=== PATIENT | male | born 1945 | race Caucasian/White ===

== ENCOUNTER 2020-03-29 18:07 | Observation (INO) ==
[2020-03-29 18:15] VITALS: BMI 24.3
--- NOTE | 2020-03-29 18:54 | DR.AMS ---
HPI <VIDYA KU - Last Filed: 03/30/20 14:16> Time Seen Time Seen by Provider: 03/29/20 18:48 PCP Primary Care Physician: DR. SUZANNE PEGUERO HPI Comment HPI Comment: PATIENT IS 74YR OLD MALE IN ER WITH AMS. TESTED FOR COVID 19 VIRUS ON WEDNESDAY AND WAS POSITIVE. HE IS NOT ON MEDICATION. HE IS WEAK, DIZZY AND CONFUSED. RUNNING FEVER. DENIES CHEST PAIN OR SINUS DRAINAGE. PATIENTS CONDITION GETTING WORSE. Complaint Cheif Complaint Doctors Comments: AMS, DIZZINESS AND COVID 19 VIRUS POSITIVE. Chief Complaint:: C/O THAT HE HAS HAD AMS, AND HE IS COVID POSITIVE HE WAS TESTED WEDNESDAY THIS WEEK , AND PT IS NOT ON ANY WEEK ,BR Self Treatment fo Chief Complaint: PT SAYS " SEJAL IS PRESIDENDENT AND HE IS IN [place] ".BR COVID-19 Coronavirus risk:travel/contact w/high risk person: No Has patient experienced Coronavirus symptoms: Yes Coronavirus symptoms experienced: Coughing and Shortness of Breath Source History Provided: Patient and Family Member Mode of Arrival Mode of Arrival: Wheelchair Timing Onset of Chief Complaint: 03/28/20 Came On: Suddenly Symptoms: Worsening Duration Duration: Constant Duration: Days Quality Quality: Confusion Severity Severity: Severe Context Recent: Fever and Cough History Of: None Associated Signs and Symptoms Associated Signs and Symptoms: Generalized Weakness, Change in Behavior and Confusion PMH <VIDYA KU - Last Filed: 03/30/20 14:16> PMH Past Medical History: No Past Surgical History: No Family History History of Family Medical Conditions: No Social History Does patient currently use any type of tobacco product: No Have you used tobacco products in the last 12 months: No Type of Tobacco Use: None Does any household member use tobacco: No Alcohol Use: None Do you use any recreational Drugs:: No Lives With: Family Lives Where: Home Travel Risk Coronavirus risk:travel/contact w/high risk person: No Has patient experienced Coronavirus symptoms: Yes Coronavirus symptoms experienced: Coughing and Shortness of Breath Infectious screening In the last 2 months have you had wt loss of >10#?: NO Have you had fever, night sweats or hemotysis?: No Have you traveled outside the country in the last 6 months?: No Isolation: Droplet ROS <VIDYA KU - Last Filed: 03/30/20 14:16> Review of Systems Constitutional: No Symptoms Reported, Fever, Weakness and Fatigue Eyes: No Symptoms Reported and See HPI ENTM: No Symptoms Reported and See HPI; negative Nose Discharge and Nose Congestion Respiratoy: No Symptoms Reported, See HPI, Non-Productive Cough and Short of Breath (ON EXERTION.); negative Wheezing Cardiovascular: No Symptoms Reported and See HPI; negative Chest Pain, Edema and Palpitations Gastrointestinal/Abdominal: No Symptoms Reported and See HPI; negative Abdominal Pain, Diarrhea and Vomiting Genitourinary: No Symptoms Reported and See HPI; negative Dysuria Neurological: Weakness and Dizziness; negative Headache Musculoskeletal: No Symptoms Reported and See HPI; negative Back Pain Integumentary: See HPI and Dryness; negative Rash Hematologic/Lymphatic: No Symptoms Reported and See HPI Endocrine: No Symptoms Reported and See HPI; negative Increased Thirst and Increased Urine Psychiatric: No Symptoms Reported and See HPI All Other Systems: Reviewed and Negative PE <VIDYA KU - Last Filed: 03/30/20 14:16> Vitals Vital Signs: Temp Pulse Pulse Resp BP BP Pulse Ox 03/29/20 22:00 73 24 164/73 96 03/29/20 18:10 102.6 F H 84 22 148/77 96 General Limitations: Altered Mental Status General Appearance: Alert Head Head Exam: Normal Inspection and Atraumatic Head Exam Physical: Other (NONE NOTED.) Eyes Eye exam: Normal Appearance and PERRL; negative Scleral Icterus and Conjunctival Injection Pupils: Regular, Round: Bilateral ENT ENT Exam: Normal Exam, Normal Oropharynx, Normal External Ear Exam and TM's Normal Bilaterally External Ear Exam: Normal External Inspection; negative Mastoid Tenderness TM/Canal Exam: Bilateral: Normal Nose Exam: Normal Nose Exam Mouth Exam: Normal Inspection; negative Lip Swelling and Tongue Swelling Throat Exam: Normal Inspection; negative Tonsillar Erythema, Tonsillomegaly and Tonsillar Exudate Neck Neck Exam: Normal Inspection and Trachea Midline; negative Tenderness and Lymphadenopathy Chest Chest Inspection: Normal Inspection and Symmetric Chest Wall Rise; negative Tenderness Respiratory Respiratory Exam: Normal Lung Sounds Bilat; negative Accessory Muscle Use, Chest Wall Tenderness and Respiratory Distress Respiratory Exam: Bilateral: Rhonchi and Lower: Rhonchi Cardiovascular Cardiovascular Exam: Regular Rate and Normal Rhythm Abdominal Exam Abdominal Exam: Normal Inspection, Normal Bowel Sounds and Soft Extremities Extremities Exam: Normal Inspection Back Back Exam: Normal Inspection Neurological Neurological Exam: Alert and Oriented X3 Psychological Psychiatric Exam: Normal Affect and Normal Mood Skin Skin Exam: Warm, Dry, Intact and Normal Color <Denia Wu - Last Filed: 03/29/20 22:21> Vitals Vital Signs: Temp Pulse Pulse Resp BP BP Pulse Ox 03/29/20 22:00 73 24 164/73 96 03/29/20 18:10 102.6 F H 84 22 148/77 96 MDM <VIDYA KU - Last Filed: 03/30/20 14:16> Differential Diagnosis Metabolic: Dehydration, Hypercalcemia, Hypernatremia, Hypoglycemia and Hyponat remia Structural: CVA and Mass Lesion Infectious: Sepsis and UTI Environmental: Hyperthermia (PNEUMONIA, [place].) COURSE <VIDYA KU - Last Filed: 03/30/20 14:16> Treatment Treatment: SEE NINO. PATIENT SIGH OUT TO DR. WU 20:00PM. Education/Counseling Education/Counseling: Patient <Denia Wu - Last Filed: 03/29/20 22:21> Treatment Treatment: [address] Ku 2200 explained dx and need for admission to pt and Consultation Call Returned: 22:00 (Dr Marx accepts admission) ROR <VIDYA KU - Last Filed: 03/30/20 14:16> Labs Reviewed Laboratory Results Reviewed?: Yes Result Diagrams: 03/30/20 06:20 03/30/20 06:20 Laboratory: WBC 2.8 X10^3/uL (3.6-10.0) L 03/29/20 19:18 RBC 3.80 X10^6/uL (4.7-6.0) L 03/29/20 19:18 Hgb 12.3 g/dL (13.5-18.0) L 03/29/20 19:18 Hct 34.8 % (42.0-54.0) L 03/29/20 19:18 MCV 91.7 fL (80.0-100.0) 03/29/20 19:18 MCH 32.3 pg (27.0-34.0) 03/29/20 19:18 MCHC 35.3 g/dL (33.0-35.0) H 03/29/20 19:18 RDW 13.8 % (11.6-16.5) 03/29/20 19:18 Plt Count 102 X10^3/uL (150.0-450.0) L 03/29/20 19:18 MPV 8.5 fL (7.4-11.0) 03/29/20 19:18 Neut % (Auto) 75.8 % (42.0-75.0) H 03/29/20 19:18 Lymph % (Auto) 13.3 % (21.0-51.0) L 03/29/20 19:18 [place] % (Auto) 10.6 % (0.0-13.0) 03/29/20 19:18 Eos % (Auto) 0.1 % (0.9-2.9) L 03/29/20 19:18 Baso % (Auto) 0.2 % (0.2-1.0) 03/29/20 19:18 Neut # (Auto) 2.2 x10^3/uL (2.2-4.8) 03/29/20 19:18 Lymph # (Auto) 0.4 X10^3/uL (1.3-2.9) L 03/29/20 19:18 [place] # (Auto) 0.3 x10^3/uL (0.3-0.8) 03/29/20 19:18 Eos # (Auto) 0.0 x10^3/uL (0.0-0.2) 03/29/20 19:18 Baso # (Auto) 0.0 X10^3/uL (0.0-0.1) 03/29/20 19:18 Absolute Nucleated RBC 0.0 /100WBC 03/29/20 19:18 Sample Site Rr 03/29/20 20:36 ABG pH 7.500 (7.35-7.45) H 03/29/20 20:36 ABG pCO2 32.0 mmHg (35.0-45.0) L 03/29/20 20:36 ABG pO2 66.0 mmHg (80.0-100.0) L 03/29/20 20:36 ABG HCO3 25.0 mmol/L (22-26) 03/29/20 20:36 ABG O2 Saturation 94.0 % (90-100) 03/29/20 20:36 ABG Base Excess 2.3 mmol/L (-2.0-2.0) H 03/29/20 20:36 Kings Test Pos 03/29/20 20:36 A-a Gradient 44.0 mmHg 03/29/20 20:36 FiO2 21.0 03/29/20 20:36 Blood Gas Comments Parviz well sw 03/29/20 20:36 Sodium 135 mmol/L (136-145) L 03/29/20 19:18 Corrected Sodium 138 mmol/L (136-145) 03/29/20 19:18 Potassium 3.6 mmol/L (3.5-5.1) 03/29/20 19:18 Chloride 99 mmol/L (98-107) 03/29/20 19:18 Carbon Dioxide 25.7 mmol/L (21-32) 03/29/20 19:18 BUN 20 mg/dL (7-18) H 03/29/20 19:18 Creatinine 1.28 mg/dL (0.70-1.30) 03/29/20 19:18 Est GFR (MDRD) Af Amer > 60 (>60) 03/29/20 19:18 Est GFR (MDRD) Non-Af 58 (>60) L 03/29/20 19:18 Glucose 242 mg/dL (65-99) H 03/29/20 19:18 Calcium 8.7 mg/dL (8.5-10.1) 03/29/20 19:18 Corrected Calcium 9.3 mg/dL (8.5-10.1) 03/29/20 19:18 Ferritin 932 ng/mL (26-388) H 03/29/20 19:18 Total Bilirubin 0.50 mg/dL (0.2-1.0) 03/29/20 19:18 AST 19 Units/L (15-37) 03/29/20 19:18 ALT 21 Units/L (12-78) 03/29/20 19:18 Alkaline Phosphatase 67 Units/L (46-116) 03/29/20 19:18 C-Reactive Protein 77.90 mg/L (0-3.0) H 03/29/20 19:18 Total Protein 6.4 g/dL (6.4-8.2) 03/29/20 19:18 Albumin 3.2 g/dL (3.4-5.0) L 03/29/20 19:18 Globulin 3.2 g/dL (2.5-4.5) 03/29/20 19:18 Albumin/Globulin Ratio 1.0 Ratio (1.1-2.1) L 03/29/20 19:18 Specimen Type Clean catch urine 03/29/20 20:02 Urine Color Yellow (YELLOW) 03/29/20 20:02 Urine Appearance Clear (CLEAR) 03/29/20 20:02 Urine pH 5.0 (5.0 - 8.0) 03/29/20 20:02 Ur Specific [place] 1.015 (1.000-1.030) 03/29/20 20:02 Urine Protein 3+ (NEGATIVE) 03/29/20 20: Urine Glucose (UA) 4+ (NEGATIVE) 03/29/20 20:02 Urine Ketones 1+ (NEGATIVE) 03/29/20 20:02 Urine Occult Blood 2+ (NEGATIVE) 03/29/20 20:02 Urine Nitrite Negative (NEGATIVE) 03/29/20 20:02 Urine Bilirubin Negative (NEGATIVE) 03/29/20 20:02 Urine Urobilinogen Normal (NORMAL) 03/29/20 20:02 Ur Leukocyte Esterase Negative (NEGATIVE) 03/29/20 20:02 Urine RBC 3-5 /HPF (0-3) A 03/29/20 20:02 Urine WBC None seen /HPF (0-5) 03/29/20 20:02 Ur Squamous Epith Cells Rare /HPF (NEGATIVE) 03/29/20 20:02 Amorphous Sediment Trace /HPF (NEGATIVE) 03/29/20 20:02 Urine Bacteria Negative /HPF (NEGATIVE) 03/29/20 20:02 Urine Mucus Few /HPF (NEGATIVE) 03/29/20 20:02 Ur Culture Indicated? No/not indicated 03/29/20 20:02 XRAY XRAY Interpreted by: Radiologist (REPORT NOTED.) EKG Rate: 69 [place]: Normal Rhythm: NSR Block: RBBB and IVCD Hypertrophy: LVH ST: Nonsp <Denia Wu - Last Filed: 03/29/20 22:21> Labs Reviewed Laboratory Results Reviewed?: Yes Laboratory: WBC 2.8 X10^3/uL (3.6-10.0) L 03/29/20 19:18 RBC 3.80 X10^6/uL (4.7-6.0) L 03/29/20 19:18 Hgb 12.3 g/dL (13.5-18.0) L 03/29/20 19:18 Hct 34.8 % (42.0-54.0) L 03/29/20 19:18 MCV 91.7 fL (80.0-100.0) 03/29/20 19:18 MCH 32.3 pg (27.0-34.0) 03/29/20 19:18 MCHC 35.3 g/dL (33.0-35.0) H 03/29/20 19:18 RDW 13.8 % (11.6-16.5) 03/29/20 19:18 Plt Count 102 X10^3/uL (150.0-450.0) L 03/29/20 19:18 MPV 8.5 fL (7.4-11.0) 03/29/20 19:18 Neut % (Auto) 75.8 % (42.0-75.0) H 03/29/20 19:18 Lymph % (Auto) 13.3 % (21.0-51.0) L 03/29/20 19:18 [place] % (Auto) 10.6 % (0.0-13.0) 03/29/20 19:18 Eos % (Auto) 0.1 % (0.9-2.9) L 03/29/20 19:18 Baso % (Auto) 0.2 % (0.2-1.0) 03/29/20 19:18 Neut # (Auto) 2.2 x10^3/uL (2.2-4.8) 03/29/20 19:18 Lymph # (Auto) 0.4 X10^3/uL (1.3-2.9) L 03/29/20 19:18 [place] # (Auto) 0.3 x10^3/uL (0.3-0.8) 03/29/20 19:18 Eos # (Auto) 0.0 x10^3/uL (0.0-0.2) 03/29/20 19:18 Baso # (Auto) 0.0 X10^3/uL (0.0-0.1) 03/29/20 19:18 Absolute Nucleated RBC 0.0 /100WBC 03/29/20 19:18 Sample Site Rr 03/29/20 20:36 ABG pH 7.500 (7.35-7.45) H 03/29/20 20:36 ABG pCO2 32.0 mmHg (35.0-45.0) L 03/29/20 20:36 ABG pO2 66.0 mmHg (80.0-100.0) L 03/29/20 20:36 ABG HCO3 25.0 mmol/L (22-26) 03/29/20 20:36 ABG O2 Saturation 94.0 % (90-100) 03/29/20 20:36 ABG Base Excess 2.3 mmol/L (-2.0-2.0) H 03/29/20 20:36 Kings Test Pos 03/29/20 20:36 A-a Gradient 44.0 mmHg 03/29/20 20:36 FiO2 21.0 03/29/20 20:36 Blood Gas Comments Parviz well sw 03/29/20 20:36 Sodium 135 mmol/L (136-145) L 03/29/20 19:18 Corrected Sodium 138 mmol/L (136-145) 03/29/20 19:18 Potassium 3.6 mmol/L (3.5-5.1) 03/29/20 19:18 Chloride 99 mmol/L (98-107) 03/29/20 19:18 Carbon Dioxide 25.7 mmol/L (21-32) 03/29/20 19:18 BUN 20 mg/dL (7-18) H 03/29/20 19:18 Creatinine 1.28 mg/dL (0.70-1.30) 03/29/20 19:18 Est GFR (MDRD) Af Amer > 60 (>60) 03/29/20 19:18 Est GFR (MDRD) Non-Af 58 (>60) L 03/29/20 19:18 Glucose 242 mg/dL (65-99) H 03/29/20 19:18 Calcium 8.7 mg/dL (8.5-10.1) 03/29/20 19:18 Corrected Calcium 9.3 mg/dL (8.5-10.1) 03/29/20 19:18 Ferritin 932 ng/mL (26-388) H 03/29/20 19:18 Total Bilirubin 0.50 mg/dL (0.2-1.0) 03/29/20 19:18 AST 19 Units/L (15-37) 03/29/20 19:18 ALT 21 Units/L (12-78) 03/29/20 19:18 Alkaline Phosphatase 67 Units/L (46-116) 03/29/20 19:18 C-Reactive Protein 77.90 mg/L (0-3.0) H 03/29/20 19:18 Total Protein 6.4 g/dL (6.4-8.2) 03/29/20 19:18 Albumin 3.2 g/dL (3.4-5.0) L 03/29/20 19:18 Globulin 3.2 g/dL (2.5-4.5) 03/29/20 19:18 Albumin/Globulin Ratio 1.0 Ratio (1.1-2.1) L 03/29/20 19:18 Specimen Type Clean catch urine 03/29/20 20:02 Urine Color Yellow (YELLOW) 03/29/20 20:02 Urine Appearance Clear (CLEAR) 03/29/20 20:02 Urine pH 5.0 (5.0 - 8.0) 03/29/20 20:02 Ur Specific [place] 1.015 (1.000-1.030) 03/29/20 20:02 Urine Protein 3+ (NEGATIVE) 03/29/20 20:02 Urine Glucose (UA) 4+ (NEGATIVE) 03/29/20 20:02 Urine Ketones 1+ (NEGATIVE) 03/29/20 20:02 Urine Occult Blood 2+ (NEGATIVE) 03/29/20 20: Urine Nitrite Negative (NEGATIVE) 03/29/20 20:02 Urine Bilirubin Negative (NEGATIVE) 03/29/20 20:02 Urine Urobilinogen Normal (NORMAL) 03/29/20 20:02 Ur Leukocyte Esterase Negative (NEGATIVE) 03/29/20 20:02 Urine RBC 3-5 /HPF (0-3) A 03/29/20 20:02 Urine WBC None seen /HPF (0-5) 03/29/20 20:02 Ur Squamous Epith Cells Rare /HPF (NEGATIVE) 03/29/20 20:02 Amorphous Sediment Trace /HPF (NEGATIVE) 03/29/20 20:02 Urine Bacteria Negative /HPF (NEGATIVE) 03/29/20 20:02 Urine Mucus Few /HPF (NEGATIVE) 03/29/20 20:02 Ur Culture Indicated? No/not indicated 03/29/20 20:02 XRAY XRAY Interpreted by: Radiologist X-ray Results: CXR: Bilateral peripheral airspace opacities; left greater than right. Findings are consistent with the given history of a COVID-[address] Head: no acute abnormality Opioid <VIDYA KU - Last Filed: 03/30/20 14:16> Opioid Risk Tool Age (Musa box if 16-45): No History of Preadolescent Sexual Abuse: No Total: 0 Total Score Risk Category: Low Risk Copyright: Jenaro DUNLAP predicting aberrant behaviors <Denia Wu - Last Filed: 03/29/20 22:21> Opioid Risk Tool Total: 0 Total Score Risk Category: Low Risk <VIDYA KU - Last Filed: 03/30/20 14:16> Diagnosis Discharge Problem: Pneumonia due to 2019 novel coronavirus, Acute confusion Sepsis Qualifiers: Sepsis type: sepsis due to unspecified organism Sepsis acute organ dysfunction status: with acute organ dysfunction Severe sepsis acute organ dysfunction type: encephalopathy Severe sepsis shock status: without septic shock Qualified Code(s): A41.9 - Sepsis, unspecified organism Leukopenia Qualifiers: Leukopenia type: lymphocytopenia Qualified Code(s): D72.810 - Lymphocytopenia Instructions Instructions: Confusion Viral Respiratory Infection, Pfdb-It-Xykw Hand Washing, Qncm-yq-Snrr Sepsis, Adult Droplet Precautions, Xuqf-qf-Ulph Contact Precautions, Suak-na-Bddz Community-Acquired Pneumonia, Adult, Ulrx-ck-Imgv Forms: Precautions for COVID19 Patient Portal Social Distancing
[2020-03-29 19:30] LABS: BASOPHILS % (AUTO) 0.2 % (0.2-1.0); EOSINOPHILS % (AUTO) 0.1 % (0.9-2.9); HEMATOCRIT 34.8 % (42.0-54.0); HEMOGLOBIN 12.3 g/dL (13.5-18.0); LYMPHOCYTES # (AUTO) 0.4 X10^3/uL (1.3-2.9); LYMPHOCYTES % (AUTO) 13.3 % (21.0-51.0); MEAN CORPUSCULAR HEMOGLOBIN 32.3 pg (27.0-34.0); MEAN CORPUSCULAR HGB CONC 35.3 g/dL (33.0-35.0); MEAN CORPUSCULAR VOLUME 91.7 fL (80.0-100.0); MEAN PLATELET VOLUME 8.5 fL (7.4-11.0); MONOCYTES # (AUTO) 0.3 x10^3/uL (0.3-0.8); MONOCYTES % (AUTO) 10.6 % (0.0-13.0); NEUTROPHILS # (AUTO) 2.2 x10^3/uL (2.2-4.8); NEUTROPHILS % (AUTO) 75.8 % (42.0-75.0); PLATELET COUNT 102 X10^3/uL (150.0-450.0); RED CELL DISTRIBUTION WIDTH 13.8 % (11.6-16.5); WHITE BLOOD COUNT 2.8 X10^3/uL (3.6-10.0)
--- NOTE | 2020-03-29 19:31 | CT ---
HISTORYWIFE C/O THAT HE HAS HAD AMS, AND HE IS COVID POSITIVE HE WAS TESTED WEDNESDAY THIS WEEKSTUDYBRAIN W/O CONCOMPARISONNoneTECHNIQUEAxial non-contrast images of the head with sagittal and coronal reformats.Radiation dose: 1256.30 mGy-cmFINDINGSNo abnormal areas of acute attenuation in the brain parenchyma.Wallace-white differentiation remains intact.No intra-cranial, extra-axial, fluid collection.No hemorrhage.Periventricular chronic microvascular disease.No mass, mass effect or midline shift.Age related brain parenchymal global atrophy.No ventriculomegaly.No acute fracture.Sinuses are well aerated.Mastoid air cells are well aerated.Globes and intra-orbital contents are unremarkable.IMPRESSIONNo acute intracranial abnormality.Electronically signed by: Kevin Farias (Mar 29, 2020 19:29:51)
[2020-03-29 19:42] LABS: ALANINE AMINOTRANSFERASE 21 Units/L (12-78); ALBUMIN 3.2 g/dL (3.4-5.0); ALKALINE PHOSPHATASE 67 Units/L (46-116); ASPARTATE AMINO TRANSFERASE 19 Units/L (15-37); BLOOD UREA NITROGEN 20 mg/dL (7-18); CALCIUM 8.7 mg/dL (8.5-10.1); CARBON DIOXIDE 25.7 mmol/L (21-32); CHLORIDE 99 mmol/L (98-107); COR CA(FOR HYPOALB) 9.3 mg/dL (8.5-10.1); COR NA(FOR HYPERGLY) 138 mmol/L (136-145); CREATININE 1.28 mg/dL (0.70-1.30); SODIUM 135 mmol/L (136-145); TOTAL PROTEIN 6.4 g/dL (6.4-8.2); eGFR NON BLACK RACES 58 (>60)
--- NOTE | 2020-03-29 20:09 | RAD ---
HISTORYWIFE C/O THAT HE HAS HAD AMS, AND HE IS COVID POSITIVE HE WAS TESTED WEDNESDAY THIS WEEKSTUDYCHEST, 1 VIEWCOMPARISONNone availableTECHNIQUEPortable AP chest radiograph 1 imageFINDINGSNo cardiomegaly.Bilateral peripheral airspace opacities; left greater than right.Mild diffuse increased interstitial markings.No pleural effusion.No pneumothorax.No acute osseous abnormality.IMPRESSIONBilateral peripheral airspace opacities; left greater than right. Findings are consistent with the given history of a COVID-19 respiratory infection.Electronically signed by: Kevin Farias (Mar 29, 2020 20:07:09)
[2020-03-29 20:28] LABS: BILIRUBIN,URINE NEGATIVE (NEGATIVE); BLOOD/HEMOGLOBIN,URINE 2+ (NEGATIVE); GLUCOSE, URINE 4+ (NEGATIVE); KETONES,URINE 1+ (NEGATIVE); LEUKOCYTE ESTERASE ,URINE NEGATIVE (NEGATIVE); NITRITES,URINE NEGATIVE (NEGATIVE); PROTEIN,URINE 3+ (NEGATIVE); UROBILINOGEN,URINE NORMAL (NORMAL)
[2020-03-29] MEDS ORDERED: ZITHROMAX INJ 500 MG VIAL 500 MG in NS 250 ML IV 250 ML IV SCH (20:37)
[2020-03-29] MEDS ORDERED: SOLU-Medrol 125 MG VIAL IVP ONE (20:37)
[2020-03-29 20:46] LABS: APPEARANCE,URINE CLEAR (CLEAR); COLOR,URINE YELLOW (YELLOW)
[2020-03-29 20:47] LABS: AMORPHOUS SEDIMENT,UR TRACE /HPF (NEGATIVE); BACTERIA,URINE NEGATIVE /HPF (NEGATIVE); MUCUS,URINE FEW /HPF (NEGATIVE); SQUAMOUS EPITHELIAL CELL,UR RARE /HPF (NEGATIVE)
[2020-03-29] MEDS ORDERED: SOLU-Medrol 125 MG VIAL ONE (21:19)
[2020-03-29] MEDS ORDERED: ZITHROMAX INJ 500 MG VIAL IV ONE (21:19)
[2020-03-29] MEDS ORDERED: NS 250 ML IV 250 ML IV ONE (21:19)
[2020-03-29 21:43] LABS: ABG ALLEN TEST POS; ABG BASE EXCESS 2.3 mmol/L (-2.0-2.0)
[2020-03-29] MEDS ORDERED: REMDESIVIR 200 MG in NS 250 ML IV 250 ML IV ONE (22:08)
[2020-03-29] MEDS ORDERED: NS 1000 ML 1,000 ML ONE (23:02)
[2020-03-29] MEDS ORDERED: NS 100 ML IV 100 ML IV ONE (23:03)
[2020-03-29] MEDS ORDERED: ASCORBIC ACID INJ MULTI-DOSE VIAL IV ONE (23:05)
[2020-03-29] MEDS: NS 1000 ML 1,000 ML IV SCH (23:10)
[2020-03-30 06:48] LABS: BASOPHILS % (AUTO) 0.1 % (0.2-1.0); HEMATOCRIT 32.7 % (42.0-54.0); HEMOGLOBIN 11.6 g/dL (13.5-18.0); LYMPHOCYTES # (AUTO) 0.3 X10^3/uL (1.3-2.9); LYMPHOCYTES % (AUTO) 13.2 % (21.0-51.0); MEAN CORPUSCULAR HEMOGLOBIN 32.9 pg (27.0-34.0); MEAN CORPUSCULAR HGB CONC 35.6 g/dL (33.0-35.0); MEAN CORPUSCULAR VOLUME 92.5 fL (80.0-100.0); MEAN PLATELET VOLUME 9.1 fL (7.4-11.0); MONOCYTES # (AUTO) 0.1 x10^3/uL (0.3-0.8); MONOCYTES % (AUTO) 5.4 % (0.0-13.0); NEUTROPHILS # (AUTO) 1.6 x10^3/uL (2.2-4.8); NEUTROPHILS % (AUTO) 81.3 % (42.0-75.0); PLATELET COUNT 96 X10^3/uL (150.0-450.0); RED BLOOD COUNT 3.54 X10^6/uL (4.7-6.0); RED CELL DISTRIBUTION WIDTH 13.6 % (11.6-16.5)
[2020-03-30 07:21] LABS: ALANINE AMINOTRANSFERASE 18 Units/L (12-78); ALBUMIN 2.8 g/dL (3.4-5.0); ALKALINE PHOSPHATASE 55 Units/L (46-116); ASPARTATE AMINO TRANSFERASE 16 Units/L (15-37); BLOOD UREA NITROGEN 23 mg/dL (7-18); CALCIUM 8.6 mg/dL (8.5-10.1); CARBON DIOXIDE 22.4 mmol/L (21-32); CHLORIDE 101 mmol/L (98-107); COR CA(FOR HYPOALB) 9.6 mg/dL (8.5-10.1); COR NA(FOR HYPERGLY) 142 mmol/L (136-145); CREATININE 1.09 mg/dL (0.70-1.30); SODIUM 136 mmol/L (136-145); eGFR NON BLACK RACES > 60 (>60)
[2020-03-30] MEDS: VIBRAMYCIN PO SCH ×2 (07:31→08:47)
[2020-03-30] MEDS: DECADRON TAB PO SCH ×2 (07:31→17:29)
[2020-03-30] MEDS: ASCORBIC ACID INJ MULTI-DOSE VIAL 1,500 MG in NS 100 ML IV 100 ML IV SCH ×4 (07:31→20:19)
[2020-03-30 07:47] LABS: PLATELET MORPHOLOGY COMMENT NORMAL (NORMAL)
[2020-03-30] MEDS ORDERED: DECADRON TAB ONE (08:21)
[2020-03-30] MEDS ORDERED: VIBRAMYCIN PO ONE (08:21)
[2020-03-30] MEDS ORDERED: THIAMINE HCL INJ ONE (08:21)
[2020-03-30] MEDS ORDERED: LOVENOX INJ 30 MG SYR SC ONE ×2 (08:22→19:14)
[2020-03-30] MEDS ORDERED: ZINC SULFATE ONE ×2 (08:22→19:14)
[2020-03-30] MEDS ORDERED: NS 100 ML IV 100 ML IV ONE ×3 (08:22→19:15)
[2020-03-30] MEDS ORDERED: PEPCID TAB 40 MG ONE (08:22)
[2020-03-30] MEDS ORDERED: ASCORBIC ACID INJ MULTI-DOSE VIAL IV ONE ×3 (08:24→19:16)
[2020-03-30] MEDS: LOVENOX INJ 30 MG SYR SC SCH ×2 (08:45→20:18)
[2020-03-30] MEDS: PEPCID TAB 40 MG PO SCH (08:46)
[2020-03-30] MEDS: ZINC SULFATE PO SCH ×2 (08:46→20:19)
[2020-03-30] MEDS ORDERED: THIAMINE HCL INJ IVP SCH (09:00)
[2020-03-30] MEDS ORDERED: ZOSYN VIAL 3.375 GRAMS IV ONE ×2 (10:41→14:35)
[2020-03-30] MEDS ORDERED: NS 100 ML IV + SPIKE MINIBAG* 100 ML IV ONE ×2 (10:42→14:36)
[2020-03-30] MEDS: ZOSYN VIAL 3.375 GRAMS 3.375 G in NS 100 ML IV + SPIKE MINIBAG* 100 ML IV SCH ×3 (11:04→22:00)
--- NOTE | 2020-03-30 11:19 | DR.H&P ---
H&P History & Physical for Day of: H&P Date: 03/30/20 Chief Complaint Chief Complaint: weakness, AMS Allergies Allergies Allergy/AdvReac Type Severity Reaction Status Date / Time No Known Drug Allergies Allergy Verified 03/29/20 18:09 History of Present Illness History of Present Illness: Mr. Cardozo is a 74y/o male with a PMH of DM presented with confusion, SOB and generalized weakness. Patient tested positive for COVID -19 on Tu03/26/20 after his fianc also tested positive. Patient is not sure if he was having any symptoms. He was brought to the ED yesterday due to weakness and confusion. ED work-up - CXR: bilateral airspace pulmonary opacities - CT-head: negative for acute process - AB.5/32/66/25 sats 94% on RA. - Labs: CRP 77 WBC 2 Hgb 11.6 Plt 96 He received a dose of solumedrol, azithromax and Remdesivir. Patient is currently on room air with sats > 92%. He is alert and oriented to himself and place. He was not able to tell me the month or the year. He is a fair historian. Plan: continue decadron, switch Doxycycline to Zosyn. Continue Remdesivir and lovenox.Monitor respiratory status closely. Add bronchodilators. Continue vitamin support. Add SSI for hyperglycemia. Monitor AM labs, imaging. Past Medical History Past Medical History: Diabetes Past Surgical History Surgical History: Unknown Social History Does patient currently use any type of tobacco product: No Have you used tobacco products in the last 12 months: No Type of Tobacco Use: None Does any household member use tobacco: No Alcohol Use: None Medications Home Medications: No Known Drug Allergies Allergy (Verified 03/29/20 18:09) CONTINUE taking the following medications glimepiride 4 mg PO DAILYWB 03/30/20 [History] Labs Result Diagrams: 03/30/20 06:20 03/30/20 06:20 Labs: Laboratory WBC 2.0 X10^3/uL (3.6-10.0) L 03/30/20 06:20 RBC 3.54 X10^6/uL (4.7-6.0) L 03/30/20 06:20 Hgb 11.6 g/dL (13.5-18.0) L 03/30/20 06:20 Hct 32.7 % (42.0-54.0) L 03/30/20 06:20 MCV 92.5 fL (80.0-100.0) 03/30/20 06:20 MCH 32.9 pg (27.0-34.0) 03/30/20 06:20 MCHC 35.6 g/dL (33.0-35.0) H 03/30/20 06:20 RDW 13.6 % (11.6-16.5) 03/30/20 06:20 Plt Count 96 X10^3/uL (150.0-450.0) L 03/30/20 06:20 Plt Count Comment Decreased (ADEQUATE) 03/30/20 06:20 MPV 9.1 fL (7.4-11.0) 03/30/20 06:20 Neut % (Auto) 81.3 % (42.0-75.0) H 03/30/20 06:20 Lymph % (Auto) 13.2 % (21.0-51.0) L 03/30/20 06:20 [place] % (Auto) 5.4 % (0.0-13.0) 03/30/20 06:20 Eos % (Auto) 0.0 % (0.9-2.9) L 03/30/20 06:20 Baso % (Auto) 0.1 % (0.2-1.0) L 03/30/20 06:20 Neut # (Auto) 1.6 x10^3/uL (2.2-4.8) L 03/30/20 06:20 Lymph # (Auto) 0.3 X10^3/uL (1.3-2.9) L 03/30/20 06:20 [place] # (Auto) 0.1 x10^3/uL (0.3-0.8) L 03/30/20 06:20 Eos # (Auto) 0.0 x10^3/uL (0.0-0.2) 03/30/20 06:20 Baso # (Auto) 0.0 X10^3/uL (0.0-0.1) 03/30/20 06:20 Absolute Nucleated RBC 0.3 /100WBC 03/30/20 06:20 Total Counted 100 03/30/20 06:20 Neutrophils % (Manual) 91 % (39-76) H 03/30/20 06:20 Lymphocytes % (Manual) 4 % (13-43) L 03/30/20 06:20 Monocytes % (Manual) 5 % (4-9) 03/30/20 06:20 Plt Morphology Comment Normal (NORMAL) 03/30/20 06:20 RBC Morphology Normal (NORMAL) 03/30/20 06:20 Sample Site Rr 03/29/20 20:36 ABG pH 7.500 (7.35-7.45) H 03/29/20 20:36 ABG pCO2 32.0 mmHg (35.0-45.0) L 03/29/20 20:36 ABG pO2 66.0 mmHg (80.0-100.0) L 03/29/20 20:36 ABG HCO3 25.0 mmol/L (22-26) 03/29/20 20:36 ABG O2 Saturation 94.0 % (90-100) 03/29/20 20:36 ABG Base Excess 2.3 mmol/L (-2.0-2.0) H 03/29/20 20:36 Kings Test Pos 03/29/20 20:36 A-a Gradient 44.0 mmHg 03/29/20 20:36 FiO2 21.0 03/29/20 20:[address] [facility] well 03/29/20 20:36 Sodium 136 mmol/L (136-145) 03/30/20 06:20 Corrected Sodium 142 mmol/L (136-145) 03/30/20 06:20 Potassium 3.9 mmol/L (3.5-5.1) 03/30/20 06:20 Chloride 101 mmol/L (98-107) 03/30/20 06:20 Carbon Dioxide 22.4 mmol/L (21-32) 03/30/20 06:20 BUN 23 mg/dL (7-18) H 03/30/20 06:20 Creatinine 1.09 mg/dL (0.70-1.30) 03/30/20 06:20 Est GFR (MDRD) Af Amer > 60 (>60) 03/30/20 06:20 Est GFR (MDRD) Non-Af > 60 (>60) 03/30/20 06:20 Glucose 337 mg/dL (65-99) H 03/30/20 06:20 POC Glucose (mg/dL) 374 mg/dL (65-99) H 03/30/20 11:08 Calcium 8.6 mg/dL (8.5-10.1) 03/30/20 06:20 Corrected Calcium 9.6 mg/dL (8.5-10.1) 03/30/20 06:20 Ferritin 932 ng/mL (26-388) H 03/29/20 19:18 Total Bilirubin 0.60 mg/dL (0.2-1.0) 03/30/20 06:20 AST 16 Units/L (15-37) 03/30/20 06:20 ALT 18 Units/L (12-78) 03/30/20 06:20 Alkaline Phosphatase 55 Units/L (46-116) 03/30/20 06:20 C-Reactive Protein 77.90 mg/L (0-3.0) H 03/29/20 19:18 Total Protein 6.0 g/dL (6.4-8.2) L 03/30/20 06:20 Albumin 2.8 g/dL (3.4-5.0) L 03/30/20 06:20 Globulin 3.2 g/dL (2.5-4.5) 03/30/20 06:20 Albumin/Globulin Ratio 0.9 Ratio (1.1-2.1) L 03/30/20 06:20 Specimen Type Clean catch urine 03/29/20 20:02 Urine Color Yellow (YELLOW) 03/29/20 20:02 Urine Appearance Clear (CLEAR) 03/29/20 20:02 Urine pH 5.0 (5.0 - 8.0) 03/29/20 20:02 Ur Specific [place] 1.015 (1.000-1.030) 03/29/20 20:02 Urine Protein 3+ (NEGATIVE) 03/29/20 20:02 Urine Glucose (UA) 4+ (NEGATIVE) 03/29/20 20:02 Urine Ketones 1+ (NEGATIVE) 03/29/20 20:02 Urine Occult Blood 2+ (NEGATIVE) 03/29/20 20:02 Urine Nitrite Negative (NEGATIVE) 03/29/20 20:02 Urine Bilirubin Negative (NEGATIVE) 03/29/20 20:02 Urine Urobilinogen Normal (NORMAL) 03/29/20 20:02 Ur Leukocyte Esterase Negative (NEGATIVE) 03/29/20 20:02 Urine RBC 3-5 /HPF (0-3) A 03/29/20 20:02 Urine WBC None seen /HPF (0-5) 03/29/20 20:02 Ur Squamous Epith Cells Rare /HPF (NEGATIVE) 03/29/20 20:02 Amorphous Sediment Trace /HPF (NEGATIVE) 03/29/20 20:02 Urine Bacteria Negative /HPF (NEGATIVE) 03/29/20 20:02 Urine Mucus Few /HPF (NEGATIVE) 03/29/20 20:02 Ur Culture Indicated? No/not indicated 03/29/20 20:02 SARS CoV-2 RNA Rapid MARIBETH Positive (NEGATIVE) A 03/29/20 22:54 Review of Systems Constitutional: Weakness and Malaise Eyes: No Symptoms Reported ENT: No Symptoms Reported Respiratory: Shortness of Breath Cardiovascular: No Symptoms Reported Gastrointestinal: No Symptoms Reported Genitourinary: No Symptoms Reported Musculoskeletal: No Symptoms Reported Skin: No Symptoms Reported Neurological: Confusion Physical Exam Vital Signs: Temperature 97.9 F Pulse Rate [Apical] 54 Pulse Rate 84 Respiratory Rate 19 Blood Pressure [Right Arm] 187/80 Blood Pressure 148/77 O2 Sat by Pulse Oximetry 97 Oriented: Normal, Person and Place Eyes: Normal Ear: Normal Nose: Normal Throat: Normal Respiratory: Diminished Throughout Cardiovascular: Normal Auscultation: Bowel Sounds: Normal Palpation: Normal Tenderness: Normal Skin: Normal Musculoskeletal: Normal Psychiatric: Normal Mood Description: Calm Affect: Normal Speech Pattern: Clear and Appropriate Assessment/Plan (1) Pneumonia due to 2019 novel coronavirus: Status: Acute (2) Acute confusion: Status: Acute (3) Leukopenia: Qualifiers: Leukopenia type: lymphocytopenia Qualified Code(s): D72.810 - Lymphocytopenia Status: Acute (4) Diabetes: Status: Acute Review H&P Reviewed: Yes Patient was examined?: Yes
[2020-03-30] MEDS ORDERED: HumuLIN R ONE ×3 (12:23→20:37)
[2020-03-30] MEDS: HumuLIN R SC PRN ×3 (12:56→20:58)
[2020-03-30] MEDS: DUONEB 0.5 MG/3 MG (3 mL) NEB SCH ×2 (13:45→21:10)
[2020-03-30] MEDS ORDERED: APRESOLINE INJ 20 MG VIAL ONE (18:17)
[2020-03-30] MEDS: APRESOLINE INJ 20 MG VIAL IVP PRN (18:22)
[2020-03-30] MEDS ORDERED: REMDESIVIR IV ONE (19:14)
[2020-03-30] MEDS ORDERED: NS 250 ML IV 250 ML IV ONE ×2 (19:15→20:39)
[2020-03-30] MEDS ORDERED: REMDESIVIR 100 MG in NS 250 ML IV 250 ML IV SCH (21:00)
[2020-03-30] MEDS: NS 1000 ML 1,000 ML IV SCH (23:07)
[2020-03-31] MEDS: ASCORBIC ACID INJ MULTI-DOSE VIAL 1,500 MG in NS 100 ML IV 100 ML IV SCH ×2 (03:00→09:12)
[2020-03-31] MEDS ORDERED: NS 100 ML IV 100 ML IV ONE ×2 (03:16→09:04)
[2020-03-31] MEDS ORDERED: ASCORBIC ACID INJ MULTI-DOSE VIAL IV ONE ×2 (03:17→09:05)
[2020-03-31] MEDS: ZOSYN VIAL 3.375 GRAMS 3.375 G in NS 100 ML IV + SPIKE MINIBAG* 100 ML IV SCH (05:13)
[2020-03-31] MEDS: DUONEB 0.5 MG/3 MG (3 mL) NEB SCH (05:18)
[2020-03-31] MEDS ORDERED: HumuLIN R ONE (06:13)
[2020-03-31 06:18] LABS: BASOPHILS % (AUTO) 0 % (0.2-1.0); HEMATOCRIT 32.7 % (42.0-54.0); HEMOGLOBIN 11.5 g/dL (13.5-18.0); LYMPHOCYTES # (AUTO) 0.2 X10^3/uL (1.3-2.9); LYMPHOCYTES % (AUTO) 8.1 % (21.0-51.0); MEAN CORPUSCULAR HEMOGLOBIN 32.7 pg (27.0-34.0); MEAN CORPUSCULAR HGB CONC 35.2 g/dL (33.0-35.0); MEAN PLATELET VOLUME 9.1 fL (7.4-11.0); MONOCYTES # (AUTO) 0.2 x10^3/uL (0.3-0.8); MONOCYTES % (AUTO) 9.8 % (0.0-13.0); NEUTROPHILS # (AUTO) 1.8 x10^3/uL (2.2-4.8); NEUTROPHILS % (AUTO) 82.1 % (42.0-75.0); PLATELET COUNT 104 X10^3/uL (150.0-450.0); RED BLOOD COUNT 3.52 X10^6/uL (4.7-6.0); RED CELL DISTRIBUTION WIDTH 13.6 % (11.6-16.5); WHITE BLOOD COUNT 2.2 X10^3/uL (3.6-10.0)
[2020-03-31 06:26] LABS: BLOOD UREA NITROGEN 29 mg/dL (7-18); CARBON DIOXIDE 25.6 mmol/L (21-32); CHLORIDE 107 mmol/L (98-107); COR NA(FOR HYPERGLY) 149 mmol/L (136-145); CREATININE 1.27 mg/dL (0.70-1.30); SODIUM 143 mmol/L (136-145); eGFR NON BLACK RACES 59 (>60)
[2020-03-31] MEDS: HumuLIN R SC PRN (06:26)
[2020-03-31 07:26] LABS: BAND NEUTROPHILS % 3 % (0-10); PLATELET MORPHOLOGY COMMENT NORMAL (NORMAL)
[2020-03-31] MEDS ORDERED: APRESOLINE INJ 20 MG VIAL ONE (08:29)
[2020-03-31] MEDS: APRESOLINE INJ 20 MG VIAL IVP PRN ×2 (08:34→08:35)
[2020-03-31] MEDS ORDERED: VITAMIN D3 125 mcg (5,000 UNITS) PO SCH (09:00)
[2020-03-31] MEDS ORDERED: THIAMINE HCL INJ IVP SCH (09:00)
[2020-03-31] MEDS ORDERED: VITAMIN A PO SCH (09:00)
[2020-03-31] MEDS ORDERED: PEPCID TAB 40 MG ONE (09:04)
[2020-03-31] MEDS ORDERED: THIAMINE HCL INJ ONE (09:04)
[2020-03-31] MEDS ORDERED: ZINC SULFATE ONE (09:04)
[2020-03-31] MEDS ORDERED: DECADRON TAB ONE (09:04)
[2020-03-31] MEDS ORDERED: LOVENOX INJ 30 MG SYR SC ONE (09:04)
[2020-03-31] MEDS: DECADRON TAB PO SCH (09:12)
[2020-03-31] MEDS: PEPCID TAB 40 MG PO SCH (09:18)
[2020-03-31] MEDS: ZINC SULFATE PO SCH (09:19)
[2020-03-31] MEDS: LOVENOX INJ 30 MG SYR SC SCH (09:19)
[2020-03-31 10:15] VITALS: BP 158/71
--- NOTE | 2020-03-31 10:46 | RAD ---
Chest AP portableIndication: COVID-19 infection with hypoxiaComparison March 29, 2020FINDINGSBilateral patchy pulmonary opacities are similar to the prior and peripheral. Monitor leads obscure minimal detail. There is no pneumothorax or effusion. Heart size is prominentIMPRESSIONUnchanged patchy bilateral pulmonary opacities suggesting viral pneumonitisElectronically signed by: JERRY KAUR (Mar 31, 2020 10:44:06)
--- NOTE | 2020-03-31 10:55 | W.DIS.FURT ---
Summary of Discharge Discharge Summary of Date Date of Exam: 03/31/20 Admission Date Date of Admission: 03/30/20 Admission Diagnosis Patient Problems (Updated 03/30/20 @ 11:29 by Shantell Martinez) Sepsis (Acute) A41.9 Pneumonia due to 2019 novel coronavirus (Acute) U07.1, J12.82 Acute confusion (Acute) R41.0 Leukopenia (Acute) D72.819 Hospital Course: Mr. Cardozo is a 74y/o male with a PMH of DM presented with confusion, SOB and generalized weakness. Patient tested positive for COVID -19 on 03/26/20 after his fianc also tested positive. Patient is not sure if he was having any symptoms. He was brought to the ED yesterday due to weakness and confusion. In the ER, CXR showed bilateral airspace disease. CT-head was negative for any acute process. Patient did require O2 2L on admission. ABG did show slight hypoxia, sats above 90% on RA. He recieved a dose of solumedrol, azithromycin and Remdesivir. He was switched to decadron and Zosyn. He was also started on bronchodilators, vitamin support and Lovenox of DVT ppx. He remained on room air. Denied shortness of breath or cough. Denies fever or chills. Patient was stable to go home. He and his fiance take care of each other. He was discharged on oral antibiotics. His BP was elevated while he was here, he states he used to be on BP medicine but not now. He was started on Norvasc 5 mg and advised to follow up with PCP. He was advised to return to ED if he has worsening shortness of breath. Patient will follow up with PCP as scheduled. Vital Signs: Vital Signs (72 hours) 03/29/20 18:10 03/29/20 22:00 03/29/20 22:56 Temperature 102.6 F H 98.2 F Pulse Rate 84 Pulse Rate [Apical] 73 71 Respiratory Rate 22 24 27 H Blood Pressure 148/77 Blood Pressure [Right Arm] 164/73 164/73 O2 Sat by Pulse Oximetry 96 96 92 L 03/30/20 00:00 03/30/20 04:00 03/30/20 08:00 Temperature 98.2 F 97.9 F Pulse Rate Pulse Rate [Apical] 70 55 L 54 L Respiratory Rate 26 H 22 19 Blood Pressure Blood Pressure [Right Arm] 156/69 187/80 O2 Sat by Pulse Oximetry 93 L 99 97 03/30/20 12:00 03/30/20 13:45 03/30/20 16:00 Temperature 98.3 F Pulse Rate 81 Pulse Rate [Apical] 91 H 68 Respiratory Rate 18 22 Blood Pressure Blood Pressure [Right Arm] 157/71 133/96 O2 Sat by Pulse Oximetry 92 L 94 L 94 L 03/30/20 20:00 03/30/20 21:10 03/31/20 00:00 Temperature 97.8 F 98.7 F Pulse Rate 69 Pulse Rate [Apical] 68 64 Respiratory Rate 18 20 Blood Pressure Blood Pressure [Right Arm] 169/74 125/67 O2 Sat by Pulse Oximetry 98 95 95 03/31/20 04:00 03/31/20 08:00 03/31/20 09:00 Temperature 98.3 F 98.4 F Pulse Rate Pulse Rate [Apical] 55 L 78 Respiratory Rate 20 20 Blood Pressure Blood Pressure [Right Arm] 171/74 180/75 158/71 O2 Sat by Pulse Oximetry 95 97 Labs: Laboratory Last Values WBC 2.2 X10^3/uL (3.6-10.0) L 03/31/20 05:46 RBC 3.52 X10^6/uL (4.7-6.0) L 03/31/20 05:46 Hgb 11.5 g/dL (13.5-18.0) L 03/31/20 05:46 Hct 32.7 % (42.0-54.0) L 03/31/20 05:46 MCV 93.0 fL (80.0-100.0) 03/31/20 05:46 MCH 32.7 pg (27.0-34.0) 03/31/20 05:46 MCHC 35.2 g/dL (33.0-35.0) H 03/31/20 05:46 RDW 13.6 % (11.6-16.5) 03/31/20 05:46 Plt Count 104 X10^3/uL (150.0-450.0) L 03/31/20 05:46 Plt Count Comment Decreased (ADEQUATE) 03/31/20 05:46 MPV 9.1 fL (7.4-11.0) 03/31/20 05:46 Neut % (Auto) 82.1 % (42.0-75.0) H 03/31/20 05:46 Lymph % (Auto) 8.1 % (21.0-51.0) L 03/31/20 05:46 Atlantic % (Auto) 9.8 % (0.0-13.0) 03/31/20 05:46 Eos % (Auto) 0.0 % (0.9-2.9) L 03/31/20 05:46 Baso % (Auto) 0 % (0.2-1.0) L 03/31/20 05:46 Neut # (Auto) 1.8 x10^3/uL (2.2-4.8) L 03/31/20 05:46 Lymph # (Auto) 0.2 X10^3/uL (1.3-2.9) L 03/31/20 05:46 Atlantic # (Auto) 0.2 x10^3/uL (0.3-0.8) L 03/31/20 05:46 Eos # (Auto) 0.0 x10^3/uL (0.0-0.2) 03/31/20 05:46 Baso # (Auto) 0.0 X10^3/uL (0.0-0.1) 03/31/20 05:46 Absolute Nucleated RBC 0.0 /100WBC 03/31/20 05:46 Total Counted 100 03/31/20 05:46 Neutrophils % (Manual) 82 % (39-76) H 03/31/20 05:46 Band Neutrophils % 3 % (0-10) 03/31/20 05:46 Lymphocytes % (Manual) 5 % (13-43) L 03/31/20 05:46 Monocytes % (Manual) 10 % (4-9) H 03/31/20 05:46 Plt Morphology Comment Normal (NORMAL) 03/31/20 05:46 RBC Morphology Normal (NORMAL) 03/31/20 05:46 Sample Site Rr 03/29/20 20:36 ABG pH 7.500 (7.35-7.45) H 03/29/20 20:36 ABG pCO2 32.0 mmHg (35.0-45.0) L 03/29/20 20:36 ABG pO2 66.0 mmHg (80.0-100.0) L 03/29/20 20:36 ABG HCO3 25.0 mmol/L (22-26) 03/29/20 20:36 ABG O2 Saturation 94.0 % (90-100) 03/29/20 20:36 ABG Base Excess 2.3 mmol/L (-2.0-2.0) H 03/29/20 20:36 Kings Test Pos 03/29/20 20:36 A-a Gradient 44.0 mmHg 03/29/20 20:36 FiO2 21.0 03/29/20 20:36 Blood Gas Comments Parviz well sw 03/29/20 20:36 Sodium 143 mmol/L (136-145) 03/31/20 05:46 Corrected Sodium 149 mmol/L (136-145) H 03/31/20 05:46 Potassium 4.5 mmol/L (3.5-5.1) 03/31/20 05:46 Chloride 107 mmol/L (98-107) 03/31/20 05:46 Carbon Dioxide 25.6 mmol/L (21-32) 03/31/20 05:46 BUN 29 mg/dL (7-18) H 03/31/20 05:46 Creatinine 1.27 mg/dL (0.70-1.30) 03/31/20 05:46 Est GFR (MDRD) Af Amer > 60 (>60) 03/31/20 05:46 Est GFR (MDRD) Non-Af 59 (>60) 03/31/20 05:46 Glucose 370 mg/dL (65-99) H 03/31/20 05:46 POC Glucose (mg/dL) 360 mg/dL (65-99) H 03/31/20 05:59 Calcium 9.0 mg/dL (8.5-10.1) 03/31/20 05:46 Corrected Calcium 9.6 mg/dL (8.5-10.1) 03/30/20 06:20 Ferritin 932 ng/mL (26-388) H 03/29/20 19:18 Total Bilirubin 0.60 mg/dL (0.2-1.0) 03/30/20 06:20 AST 16 Units/L (15-37) 03/30/20 06:20 ALT 18 Units/L (12-78) 03/30/20 06:20 Alkaline Phosphatase 55 Units/L (46-116) 03/30/20 06:20 C-Reactive Protein 40.90 mg/L (0-3.0) H 03/31/20 05:46 Total Protein 6.0 g/dL (6.4-8.2) L 03/30/20 06:20 Albumin 2.8 g/dL (3.4-5.0) L 03/30/20 06:20 Globulin 3.2 g/dL (2.5-4.5) 03/30/20 06:20 Albumin/Globulin Ratio 0.9 Ratio (1.1-2.1) L 03/30/20 06:20 Specimen Type Clean catch urine 03/29/20 20:02 Urine Color Yellow (YELLOW) 03/29/20 20:02 Urine Appearance Clear (CLEAR) 03/29/20 20:02 Urine pH 5.0 (5.0 - 8.0) 03/29/20 20:02 Ur Specific Meredith 1.015 (1.000-1.030) 03/29/20 20:02 Urine Protein 3+ (NEGATIVE) 03/29/20 20:02 Urine Glucose (UA) 4+ (NEGATIVE) 03/29/20 20:02 Urine Ketones 1+ (NEGATIVE) 03/29/20 20: Urine Occult Blood 2+ (NEGATIVE) 03/29/20 20:02 Urine Nitrite Negative (NEGATIVE) 03/29/20 20: Urine Bilirubin Negative (NEGATIVE) 03/29/20 20: Urine Urobilinogen Normal (NORMAL) 03/29/20 20: Ur Leukocyte Esterase Negative (NEGATIVE) 03/29/20 20:02 Urine RBC 3-5 /HPF (0-3) A 03/29/20 20:02 Urine WBC None seen /HPF (0-5) 03/29/20 20:02 Ur Squamous Epith Cells Rare /HPF (NEGATIVE) 03/29/20 20:02 Amorphous Sediment Trace /HPF (NEGATIVE) 03/29/20 20:02 Urine Bacteria Negative /HPF (NEGATIVE) 03/29/20 20:02 Urine Mucus Few /HPF (NEGATIVE) 03/29/20 20:02 Ur Culture Indicated? No/not indicated 03/29/20 20:02 SARS CoV-2 RNA Rapid MARIBETH Positive (NEGATIVE) A 03/29/20 22:54 Reason For Visit: SEPSIS,COVID 19 PNEUMONIA,HYPOXIA, Discharge Date Discharge Date: 03/31/20 Discharge Diagnosis All Active Problems (Updated 03/30/20 @ 11:29 by Shantell Martinez) Diabetes (Acute) Sepsis (Acute) Pneumonia due to 2019 novel coronavirus (Acute) Acute confusion (Acute) Leukopenia (Acute) Plan of Treatment: Continue with present treatment and follow up plan. Pt is to keep follow up appointment as instructed and take medications as ordered. Discharge Medications Discharge Medications: No Known Drug Allergies Allergy (Verified 03/29/20 18:09) CONTINUE taking the following medications glimepiride 4 mg PO DAILYWB 03/30/20 [History] New Prescriptions amlodipine 5 mg PO DAILY 30 Days #30 tab 03/31/20 [Rx] azithromycin See Rx Instructions .ROUTE .COMPLEX #6 tab 03/31/20 [Rx] Follow up and Referral Follow Up: 1 Week (PCP) Discharge Disposition Discharge Disposition: Home Discharge Condition: Stable Discharge Plan Discharge Plan Hospital Course: Mr. Cardozo is a 74y/o male with a PMH of DM presented with confusion, SOB and generalized weakness. Patient tested positive for COVID -19 on 03/26/20 after his fianc also tested positive. Patient is not sure if he was having any symptoms. He was brought to the ED yesterday due to weakness and confusion. In the ER, CXR showed bilateral airspace disease. CT-head was negative for any acute process. Patient did require O2 2L on admission. ABG did show slight hypoxia, sats above 90% on RA. He recieved a dose of solumedrol, azithromycin and Remdesivir. He was switched to decadron and Zosyn. He was also started on bronchodilators, vitamin support and Lovenox of DVT ppx. He remained on room air. Denied shortness of breath or cough. Denies fever or chills. Patient was stable to go home. He and his fiance take care of each other. He was discharged on oral antibiotics. His BP was elevated while he was here, he states he used to be on BP medicine but not now. He was started on Norvasc 5 mg and advised to follow up with PCP. He was advised to return to ED if he has worsening shortness of breath. Patient will follow up with PCP as scheduled. Patient Disposition: HOME, SELF-CARE Condition: Stable Health Concerns: Post Hospitalization: new medications and changes needed to prevent readmission or further decline. Pt educated and given instructions on all concerns. Care Plan Goals: Problem: Infection Goal: Temperature within normal limits. Resolved infection. Instructions: Follow provided instructions. Follow up with primary physician as directed. Contact primary care physician or report to the closest Emergency Room if condition worsens. Plan of Treatment: Continue with present treatment and follow up plan. Pt is to keep follow up appointment as instructed and take medications as ordered. Prescriptions: New azithromycin 250 mg tablet See Rx Instructions .ROUTE .COMPLEX Qty: 6 RF: 0 amlodipine 5 mg tablet 5 mg PO DAILY 30 Days Qty: 30 RF: 0 Continued glimepiride 4 mg tablet 4 mg PO DAILYWB RF: 0 Orders to Discharge Patient Discharge Orders: Discharge (Routine); Ordered 03/31/20 Ordered By: Shantell Martinez Follow ups/Referrals Follow ups/Referrals: GLEN PEGUERO [Primary Care Provider] - 1 WEEK (Call office on Wednesday and schedule a 1 week follow up. ) Instructions Instructions: Confusion, Viral Respiratory Infection, Czwm-Ab-Mheb, Hand Washing, Mynz-ns-Pfow, Sepsis, Adult, Type 2 Diabetes Mellitus, Self Care, Adult, Nfxs-dh-Utmy, Droplet Precautions, Lezt-tp-Oyhh, Contact Precautions, Uxpf-bz-Rust, Hypertension, Aqgr-sx-Fugq, Community-Acquired Pneumonia, Adult, Otoj-xy-Fbuw Activity Restrictions/Additional Instructions: Use Incentive Spirometer at least every hour Get up and move around often Quarantine until WednesdayApril 09 Stand Alone Forms: Precautions for COVID19, Patient Portal, Social Distancing
== END 2020-03-31 12:15 | disposition home or self-care (01) ==
LOC: ER 18:08 → OBS 18:08
PROVIDERS: ADMIT Family Medicine; ATTEND Family Medicine

== ENCOUNTER 2024-02-22 13:01 | Inpatient (IN) ==
--- NOTE | 2024-02-22 14:23 | EKG ---
Test Reason : preop clearance Blood Pressure : */* mmHG Vent. Rate : 60 BPM Atrial Rate : 60 BPM P-R Int : 192 ms QRS Dur : 144 ms QT Int : 470 ms P-R-T Axes : 102 -68 73 degrees QTc Int : 470 ms Normal sinus rhythm Right bundle branch block Left anterior fascicular block Bifascicular block Septal infarct , age undetermined Abnormal ECG No previous ECGs available Confirmed by Carlos Dailey MD ([id number]) on 02/22/2024 6:07:31 PM Referred By: Confirmed By: Carlos Dailey MD
[2024-02-22] MEDS: LR 1,000 ML IV 1,000 ML IV SCH (14:38)
[2024-02-22] MEDS: ZOSYN VIAL 3.375 GRAMS 3.375 G in NS 100 ML IV 100 ML IV SCH (14:38)
[2024-02-22] MEDS: NS 250 ML IV 25 ML IV PRN (14:38)
[2024-02-22 14:39] LABS: BASOPHILS # (AUTO) 0.1 X10^3/uL (0.0-0.1); BASOPHILS % (AUTO) 0.9 % (0.2-1.0); EOSINOPHILS # (AUTO) 0.2 x10^3/uL (0.0-0.2); EOSINOPHILS % (AUTO) 2.6 % (0.9-2.9); HEMATOCRIT 30.6 % (42.0-54.0); HEMOGLOBIN 10.7 g/dL (13.5-18.0); LYMPHOCYTES % (AUTO) 13.4 % (21.0-51.0); MEAN CORPUSCULAR HEMOGLOBIN 34.2 pg (27.0-34.0); MEAN CORPUSCULAR HGB CONC 35.1 g/dL (33.0-35.0); MEAN CORPUSCULAR VOLUME 97.4 fL (80.0-100.0); MEAN PLATELET VOLUME 7.7 fL (7.4-11.0); MONOCYTES # (AUTO) 0.5 x10^3/uL (0.3-0.8); MONOCYTES % (AUTO) 7.2 % (0.0-13.0); NEUTROPHILS # (AUTO) 5.7 x10^3/uL (2.2-4.8); NEUTROPHILS % (AUTO) 75.9 % (42.0-75.0); PLATELET COUNT 198 X10^3/uL (150.0-450.0); RED BLOOD COUNT 3.14 X10^6/uL (4.7-6.0); RED CELL DISTRIBUTION WIDTH 16.7 % (11.6-16.5); WHITE BLOOD COUNT 7.5 X10^3/uL (3.6-10.0)
[2024-02-22 14:53] LABS: ALANINE AMINOTRANSFERASE 19 Units/L (12-78); ALBUMIN 3.4 g/dL (3.4-5.0); ALKALINE PHOSPHATASE 91 Units/L (46-116); ASPARTATE AMINO TRANSFERASE 14 Units/L (15-37); BLOOD UREA NITROGEN 24 mg/dL (7-18); CALCIUM 9.3 mg/dL (8.5-10.1); CARBON DIOXIDE 30.1 mmol/L (21-32); CHLORIDE 105 mmol/L (98-107); COR NA(FOR HYPERGLY) 142 mmol/L (136-145); CREATININE 1.01 mg/dL (0.70-1.30); GLUCOSE 148 mg/dL (65-99); POTASSIUM 3.9 mmol/L (3.5-5.1); SODIUM 141 mmol/L (136-145); TOTAL PROTEIN 6.9 g/dL (6.4-8.2); eGFR NON BLACK RACES > 60 (>60)
[2024-02-22 15:17] LABS: HEMOGLOBIN A1C 6.1 %
[2024-02-22] MEDS: NovoLIN R (or HumuLIN R) SUBCUT PRN (16:55)
--- NOTE | 2024-02-22 17:52 | MRI ---
EXAM: EXT LOWER NON-JOINT W/O CON HISTORY: RIGHT FOOT OSTEOMYELITIS, BEST IMAGES POSSIBLE, PT HAS INVOLUNTARY MOVEMENTS ON HIS RIGHT SIDE. hx o f stroke ; COMPARISON: None. TECHNIQUE: MRI imaging of the right foot without intravenous contrast. Limited by patient motion. FINDINGS: Edema in the plantar soft tissues adjacent to the 5th MTP joint/5th metatarsal head. Mild increased T2 signal and decreased T1 signal in the inferior aspect of the 5th metatarsal head. Normal T1 signal throughout the remainder of the imaged osseous structures. Imaged tendons are unremarkable in appearance. Normal joint spaces. IMPRESSION: Edema in the plantar soft tissues adjacent to the 5th MTP joint/5th metatarsal head. Mild increased T 2 signal and decreased T1 signal in the inferior aspect of the 5th metatarsal head. Findings could r epresent osteomyelitis; although the study is limited given the patient's motion. Consider nuclear m edicine tagged white blood cell scan for further evaluation. THIS IS AN ELECTRONICALLY VERIFIED FINAL REPORT 02/22/2024 5:49 PM - Electronically signed by Kevin Farias MD
[2024-02-22] MEDS: SNACK - Diabetic Appropriate PO SCH (20:00)
[2024-02-22] MEDS: GLUCOPHAGE XR 24-HR PO SCH (21:46)
--- NOTE | 2024-02-22 23:26 | RAD ---
PROCEDURE: Chest X-ray 1 View. HISTORY: pre op right foot surgery; . TECHNIQUE: AP view. COMPARISON: None . TECHNICAL QUALITY: Satisfactory. FINDINGS: Normal size heart. Mediastinum and hilar regions show no masses or lymphadenopathy. Normal central vascularity. No pulmonary consolidation, masses, pleural fluid, or pneumothorax. Skin fold projected over the righ t lung nieves with lung markings seen beyond the fold. No acute bony abnormality. IMPRESSION: No evidence of active cardiopulmonary disease. THIS IS AN ELECTRONICALLY VERIFIED FINAL REPORT 02/22/2024 11:23 PM - Electronically signed by David Anderson MD
[2024-02-23 06:29] LABS: BASOPHILS # (AUTO) 0.1 X10^3/uL (0.0-0.1); EOSINOPHILS # (AUTO) 0.2 x10^3/uL (0.0-0.2); EOSINOPHILS % (AUTO) 3.9 % (0.9-2.9); HEMATOCRIT 27.4 % (42.0-54.0); HEMOGLOBIN 9.7 g/dL (13.5-18.0); LYMPHOCYTES # (AUTO) 0.8 X10^3/uL (1.3-2.9); LYMPHOCYTES % (AUTO) 13.5 % (21.0-51.0); MEAN CORPUSCULAR HEMOGLOBIN 34.3 pg (27.0-34.0); MEAN CORPUSCULAR HGB CONC 35.4 g/dL (33.0-35.0); MEAN CORPUSCULAR VOLUME 96.7 fL (80.0-100.0); MEAN PLATELET VOLUME 7.9 fL (7.4-11.0); MONOCYTES # (AUTO) 0.4 x10^3/uL (0.3-0.8); MONOCYTES % (AUTO) 6.4 % (0.0-13.0); NEUTROPHILS # (AUTO) 4.6 x10^3/uL (2.2-4.8); NEUTROPHILS % (AUTO) 75.2 % (42.0-75.0); PLATELET COUNT 152 X10^3/uL (150.0-450.0); RED BLOOD COUNT 2.84 X10^6/uL (4.7-6.0); RED CELL DISTRIBUTION WIDTH 16.5 % (11.6-16.5); WHITE BLOOD COUNT 6.1 X10^3/uL (3.6-10.0)
[2024-02-23 06:37] LABS: ALANINE AMINOTRANSFERASE 14 Units/L (12-78); ALKALINE PHOSPHATASE 82 Units/L (46-116); ASPARTATE AMINO TRANSFERASE 12 Units/L (15-37); BLOOD UREA NITROGEN 22 mg/dL (7-18); CALCIUM 9.3 mg/dL (8.5-10.1); CARBON DIOXIDE 27.2 mmol/L (21-32); CHLORIDE 109 mmol/L (98-107); COR CA(FOR HYPOALB) 10.1 mg/dL (8.5-10.1); COR NA(FOR HYPERGLY) 144 mmol/L (136-145); CREATININE 0.95 mg/dL (0.70-1.30); GLUCOSE 115 mg/dL (65-99); POTASSIUM 3.8 mmol/L (3.5-5.1); SODIUM 144 mmol/L (136-145); TOTAL PROTEIN 5.9 g/dL (6.4-8.2); eGFR NON BLACK RACES > 60 (>60)
[2024-02-23] MEDS: PROzac PO SCH (08:18)
--- NOTE | 2024-02-23 08:36 | DR.CONSULT ---
CONSULT Consultation for Day of: Date: 02/23/24 Chief Complaint Chief Complaint: Osteomyelitis, Right Foot Allergies Allergies Allergy/AdvReac Type Severity Reaction Status Date / Time No Known Drug Allergies Allergy Verified 03/29/20 18:09 History of Present Illness History of Present Illness: Patient is 78 year old diabetic male who has been seeing Dr. Mathews in [place] for wound to plantar lateral fifth metatarsal head. The patient presented in the office yesterday with worsening signs around the wound such as necrotic appearing tissue, increased erythema surrounding the wound, no fluctuance noted, malodor present. This prompted worsening signs of infection with possible osteomyelitis. Patient was recommend to go to hospital for admission and MRI to evaluate osteomyelitis. Patient has previously seen Dr. Villarreal for vascular issue and has been instructed at this time no need for intervention. Past Medical History Past Medical History: Diabetes Past Surgical History Surgical History: Unknown Social History Does patient currently use any type of tobacco product: No Type of Tobacco Use: None Alcohol Use: None Drug Use: None Medications Home Medications: No Known Drug Allergies Allergy (Verified 03/29/20 18:09) CONTINUE taking the following medications amlodipine 5 mg tablet 5 mg PO QDAY 02/22/24 [History] aspirin 81 mg tablet,delayed release 81 mg PO QDAY 02/22/24 [History] atorvastatin 80 mg tablet 80 mg PO QDAY 02/22/24 [History] celecoxib 100 mg capsule 100 mg PO QDAY 02/22/24 [History] ferrous sulfate 325 mg (65 mg iron) tablet 325 mg PO QDAY 02/22/24 [History] glimepiride 2 mg tablet 2 mg PO QAM 02/22/24 [History] metformin 500 mg tablet 500 mg PO QDAY 02/22/24 [History] Review of Systems Constitutional: See HPI Skin: See HPI Physical Exam Vital Signs: Vital Signs Temperature 97.5 F Temperature 98.3 F Pulse Rate [Left Brachial] 61 Pulse Rate [Left Brachial] 55 Respiratory Rate 20 Respiratory Rate 22 Blood Pressure [Right Arm] 167/70 Blood Pressure [Right Arm] 159/70 O2 Sat by Pulse Oximetry 98 O2 Sat by Pulse Oximetry 98 Oriented: Normal Cardiovascular: Other (DP pulse 1/4 and PT is 1/4. CFT WNL to all digits. Increased erythema surrounding wound. Atrophic skin changes. Has seen [facility] who believes enough flow to heal surgery and wound. ) Skin: Wound (Wound to lateral fifth metatarsal head measuring 1.5 cm x 1.0. cm x 0.4 cm with necrotic central plug and surrounding erythema. Unable to fully evaluate as patient guard with palpating area. Patient is also contracted at the knee to approx 60 degrees and cannot fully extend foot for evaluation. ) and Other (Odor is present to wound as well. Wound to lateral malleolus measuring 0.5 cm circumferential appears not acutely infected but needs debridement. ) Musculoskeletal: Tender (Tender to wound above. Severe knee contracture. ) Plan (1) Osteomyelitis of foot, right, acute: Status: Acute Plan: - Patient has worsening signs around fifth metatarsal wound high suspicion for osteomyelitis. - MRI obtained which shows osteomyelitis to the fifth metatarsal and possible phalanx. - Patient has seen Dr. Villarreal who believes no intervention and he has enough flow to heal. - Patient started on IV Zosyn for osteomyelitis. - Discussed with patient this am that plan will be surgical intervention consisting in a staged manner, first stage debridement of all nonviable tissue and resection of infected bone with cultures and biopsy, placement of antibiotic elluding device. Then second stage will be filet toe flap of fifth digit to cover the deficit. Patient is understanding of procedure. - We will also possibly debride the ankle wound as well. Will evaluate intra- operatively. - NPO currently. - Consent obtained. - Surgery this am. (2) Peripheral vascular disease: Status: Acute
[2024-02-23 08:52] VITALS: BMI 16.3
[2024-02-23] MEDS: NS 1,000 ML IV 1,000 ML ONE (09:58)
[2024-02-23] MEDS: PEPCID 20 MG VIAL ONE (10:44)
[2024-02-23] MEDS: TOBRAMYCIN SULFATE ONE (10:59)
[2024-02-23] MEDS: VANCOMYCIN HCL ONE ×4 (10:59→11:07)
[2024-02-23] MEDS: BETADINE SOLN ONE (10:59)
[2024-02-23] MEDS: MARCAINE 0.25% INJ ONE (10:59)
[2024-02-23] MEDS: REGLAN INJ 10 MG VIAL ONE (11:19)
[2024-02-23] MEDS: FENTANYL VIAL INJ 100 mcg ONE (11:19)
[2024-02-23] MEDS: DIPRIVAN VIAL 20 ML ONE (11:19)
[2024-02-23] MEDS: OFIRMEV IV 1000 MG VIAL 0 MG/0 ML VIAL IV ONE (11:19)
[2024-02-23] MEDS: VERSED ONE (11:19)
[2024-02-23] MEDS: XYLOCAINE 2 % (PLAIN) ONE (11:19)
[2024-02-23] MEDS: DECADRON INJ ONE (11:19)
[2024-02-23] MEDS: ZOFRAN INJ 4 MG VIAL ONE (11:19)
[2024-02-23] MEDS: EPHEDRINE SULFATE INJ ONE (11:31)
--- NOTE | 2024-02-23 16:24 | RAD ---
EXAM:X-ray right foot three viewsHISTORY:POST OP FOOT SX -COMPARISON:MRI 02/23/2024FINDINGS:There has been resection of the distal head of the 5th metatarsal with material placed within the 5th MCP joint region. Overlying skin defect is seen. No dislocation is seen.IMPRESSION:Postoperative changes are seen associated with the distal head of the 5th metatarsal.THIS IS AN ELECTRONICALLY VERIFIED FINAL [id number]/2024 4:20 PM - Electronically signed by Edgard Carter MD
[2024-02-24 06:27] LABS: ALANINE AMINOTRANSFERASE 14 Units/L (12-78); ALBUMIN 2.8 g/dL (3.4-5.0); ALKALINE PHOSPHATASE 80 Units/L (46-116); ASPARTATE AMINO TRANSFERASE 13 Units/L (15-37); BLOOD UREA NITROGEN 25 mg/dL (7-18); CALCIUM 8.9 mg/dL (8.5-10.1); CARBON DIOXIDE 26.2 mmol/L (21-32); CHLORIDE 108 mmol/L (98-107); COR CA(FOR HYPOALB) 9.9 mg/dL (8.5-10.1); COR NA(FOR HYPERGLY) 144 mmol/L (136-145); CREATININE 1.01 mg/dL (0.70-1.30); GLUCOSE 123 mg/dL (65-99); POTASSIUM 4.2 mmol/L (3.5-5.1); SODIUM 143 mmol/L (136-145); TOTAL PROTEIN 5.8 g/dL (6.4-8.2); eGFR NON BLACK RACES > 60 (>60)
[2024-02-24 06:38] LABS: BASOPHILS % (AUTO) 0.4 % (0.2-1.0); EOSINOPHILS % (AUTO) 0.4 % (0.9-2.9); HEMATOCRIT 33.6 % (42.0-54.0); HEMOGLOBIN 11.6 g/dL (13.5-18.0); LYMPHOCYTES # (AUTO) 0.9 X10^3/uL (1.3-2.9); LYMPHOCYTES % (AUTO) 14.6 % (21.0-51.0); MEAN CORPUSCULAR HGB CONC 34.5 g/dL (33.0-35.0); MEAN CORPUSCULAR VOLUME 98.7 fL (80.0-100.0); MONOCYTES # (AUTO) 0.4 x10^3/uL (0.3-0.8); MONOCYTES % (AUTO) 6.8 % (0.0-13.0); NEUTROPHILS # (AUTO) 4.7 x10^3/uL (2.2-4.8); NEUTROPHILS % (AUTO) 77.8 % (42.0-75.0); PLATELET COUNT 110 X10^3/uL (150.0-450.0); RED CELL DISTRIBUTION WIDTH 16.2 % (11.6-16.5)
--- NOTE | 2024-02-24 09:15 | NOTE.SOAP ---
Soap Note Note for Day of Date of Exam: 02/24/24 Subjective Data Subjective Data: Patient resting in bed. States "he has to get to the hospital". Objective Data Objective Data: Right Foot: Dressing is clean, dry, and intact to right foot. No signs of DVT. Cannot fully communicate with patient. Assessment Assessment: 78 year old M POD#1 from debridement with graft application and 5th metatarsal head resection with placement of antibiotic wafer for osteomyelitis, right foot Plan Plan: - Doing well. - Can be HWB to [facility] for transfers. - Keep dressing clean , dry and intact. - Cultures showing no growth currently. - Will follow path report. - Plan for delayed primary closure of wound with filet toe flap of fifth digit, right foot tomorrow - Will be done under local only. - NPO after midnight. - May be able to go home post-surgery tomorrow.
[2024-02-24] MEDS: HALDOL INJ IM ONE (14:42)
[2024-02-24 18:57] LABS: BILIRUBIN,URINE NEGATIVE (NEGATIVE); BLOOD/HEMOGLOBIN,URINE 2+ (NEGATIVE); GLUCOSE, URINE NEGATIVE (NEGATIVE); KETONES,URINE NEGATIVE (NEGATIVE); LEUKOCYTE ESTERASE ,URINE NEGATIVE (NEGATIVE); NITRITES,URINE NEGATIVE (NEGATIVE); PROTEIN,URINE 1+ (NEGATIVE); UROBILINOGEN,URINE 1+ (NORMAL)
[2024-02-24 19:27] LABS: APPEARANCE,URINE CLEAR (CLEAR); BACTERIA,URINE NEGATIVE /HPF (NEGATIVE); COLOR,URINE YELLOW (YELLOW); SQUAMOUS EPITHELIAL CELL,UR RARE /HPF (NEGATIVE)
[2024-02-25] MEDS: HIBICLENS WASH EXT ONE (05:48)
[2024-02-25] MEDS: NOZIN NASAL SANITIZER TP ONE (05:48)
[2024-02-25 06:13] LABS: BASOPHILS % (AUTO) 0.8 % (0.2-1.0); EOSINOPHILS # (AUTO) 0.1 x10^3/uL (0.0-0.2); EOSINOPHILS % (AUTO) 1.8 % (0.9-2.9); HEMATOCRIT 28.7 % (42.0-54.0); HEMOGLOBIN 10.1 g/dL (13.5-18.0); LYMPHOCYTES # (AUTO) 0.8 X10^3/uL (1.3-2.9); LYMPHOCYTES % (AUTO) 14.2 % (21.0-51.0); MEAN CORPUSCULAR HEMOGLOBIN 34.2 pg (27.0-34.0); MEAN CORPUSCULAR HGB CONC 35.2 g/dL (33.0-35.0); MEAN CORPUSCULAR VOLUME 97.3 fL (80.0-100.0); MONOCYTES # (AUTO) 0.4 x10^3/uL (0.3-0.8); MONOCYTES % (AUTO) 7.1 % (0.0-13.0); NEUTROPHILS # (AUTO) 4.5 x10^3/uL (2.2-4.8); NEUTROPHILS % (AUTO) 76.1 % (42.0-75.0); PLATELET COUNT 181 X10^3/uL (150.0-450.0); RED BLOOD COUNT 2.95 X10^6/uL (4.7-6.0); RED CELL DISTRIBUTION WIDTH 16.2 % (11.6-16.5); WHITE BLOOD COUNT 5.9 X10^3/uL (3.6-10.0)
[2024-02-25 06:35] LABS: ALANINE AMINOTRANSFERASE 17 Units/L (12-78); ALBUMIN 2.9 g/dL (3.4-5.0); ALKALINE PHOSPHATASE 74 Units/L (46-116); ASPARTATE AMINO TRANSFERASE 15 Units/L (15-37); BLOOD UREA NITROGEN 23 mg/dL (7-18); CALCIUM 8.8 mg/dL (8.5-10.1); CARBON DIOXIDE 26.1 mmol/L (21-32); CHLORIDE 107 mmol/L (98-107); COR CA(FOR HYPOALB) 9.7 mg/dL (8.5-10.1); CREATININE 0.93 mg/dL (0.70-1.30); GLUCOSE 94 mg/dL (65-99); POTASSIUM 3.8 mmol/L (3.5-5.1); SODIUM 141 mmol/L (136-145); TOTAL PROTEIN 5.8 g/dL (6.4-8.2); eGFR NON BLACK RACES > 60 (>60)
[2024-02-25] MEDS: XYLOCAINE 1% and EPINEPHRINE 1:100,000 ONE (08:52)
[2024-02-25] MEDS: BETADINE SOLN ONE (08:57)
[2024-02-25 11:54] VITALS: O2SAT 99
[2024-02-25 11:56] VITALS: BP 134/65; PULSE 78; RESP 20; TEMP 97.7
[2025-02-22] MEDS ORDERED: KETAMINE HCL ONE (21:29)
[2025-02-22] MEDS ORDERED: PRECEDEX INJ VIAL ONE (21:29)
== END 2024-02-25 14:25 | disposition home health service (06) | DRG 464 ==
LOC: MED/SURG 13:17
PROVIDERS: ADMIT Obstetrics & Gynecology Obstetrics; ATTEND Obstetrics & Gynecology Obstetrics
DX: E11.65 Type 2 diabetes mellitus with hyperglycemia; M86.171 Other acute osteomyelitis, right ankle and foot; R94.31 Abnormal electrocardiogram [ECG] [EKG]; L97.518 Non-pressure chronic ulcer of other part of right foot with other specified severity; M89.771 Major osseous defect, right ankle and foot; Z01.810 Encounter for preprocedural cardiovascular examination; E11.621 Type 2 diabetes mellitus with foot ulcer; I73.89 Other specified peripheral vascular diseases; B95.61 Methicillin susceptible Staphylococcus aureus infection as the cause of diseases classified elsewhere